=== PATIENT | female | born 1960 | race Caucasian/White ===

== ENCOUNTER → 2016-10-15 | Outpatient (CLI) | payer OTHER ==
[~2016-10-15] MED LIST: ACCOLATE20 MG PO; ADVAIR 500/501 DISK IH; ASCORBIC ACID500 M3 PO; BENTYL20 MG PO; CELEBREX200 MG PO; EVAMIST8.1 ML TD; EVAMIST8.1 ML TP; Ecotrin PO; FERROUS SULFAT325 M2 PO; FLAGYL500 MG PO; Feosol PO; GEMFIBROZIL600 MG PO; OMEPRAZOLE20 M3 PO; PERCOCET 2.51 TABLET PO; PRILOSEC OTC20 MG PO; ROBITUSSIN AC,T10 ML PO; SENOKOT S,PE1 TABLET PO; SENOKOT,SENN1 TABLE1 PO; SENOKOT,SENN1 TABLET PO; TYLENOL EXTRA500 MG PO; TYLENOL REGULA325 MG PO; VENTOLIN HFA18 GM IH; Vicodin,Norco 5/325 PO; ZOFRAN ODT4 MG PO; ZYRTEC10 M3 PO
== END | disposition home or self-care (01) ==
LOC: RAD 11:00
DX: R93.5 Abnormal findings on diagnostic imaging of other abdominal regions, including retroperitoneum (principal)
CPT/HCPCS: 74177

== ENCOUNTER 2016-10-16 16:11 | Emergency (ER) | payer OTHER ==
[~2016-10-16] VITALS: Ht 165.1 cm; Wt 88.7 kg
[~2016-10-16 16:11] MED LIST changes: -BENTYL20 MG PO; -FLAGYL500 MG PO; -ZOFRAN ODT4 MG PO
[2016-10-16 17:00] LABS: HEMATOCRIT 38.5 % (36.0-46.0); MCH 29.3 PG (29.0-34.0); MCV 86.1 FL (83-99); MEAN PLAT.VOLUME 8.3 uM^3 (9.5-12.4); PLATELET COUNT 359 K/uL (156-360); RBC DIS.WIDTH-CV 11.9 % (11.8-14.6); RBC DIS.WIDTH-SD 38.2 % (39-53); RED BLOOD COUNT 4.47 M/uL (3.80-5.20); WHITE BLOOD COUNT 9.1 K/uL (4.1-10.2)
[2016-10-16 17:12] LABS: CHLORIDE 105 mEq/L (99-109); POTASSIUM 3.7 mEq/L (3.7-5.4); SODIUM 141 mEq/L (136-147)
[2016-10-16 17:12] LABS: ADD MIUA? YES; BILIRUBIN NEGATIVE; BLOOD SMALL; COLOR STRAW ((YELLOW)); GLUCOSE (STRIP) NEGATIVE; KETONES NEGATIVE; LEUKOCYTES NEGATIVE; NITRITE NEGATIVE; PROTEIN (STRIP) NEGATIVE; SPECIFIC GRAVITY 1.004 (1.000-1.030); UROBILINOGEN 0.2 MG/DL (0.2-1.0)
[2016-10-16 17:14] LABS: GLUCOSE 95 mg/dL (70-99)
[2016-10-16 17:15] LABS: ANION GAP 8 MEQ/L (2-14)
[2016-10-16 17:16] LABS: TOTAL BILIRUBIN 0.5 mg/dL (0.0-1.0)
[2016-10-16 17:17] LABS: ALKALINE PHOSPHATASE 96 IU/L (3-129)
[2016-10-16 17:18] LABS: GFR ESTIMATE (CALCULATED) > 59 mL/min/
[2016-10-16 17:19] LABS: UREA NITROGEN (BUN) 7 mg/dL (9-23)
[2016-10-16 17:25] LABS: BACTERIA RARE /HPF; EPITHELIAL CELLS RARE /HPF; MUCUS TRACE /LPF; RED BLOOD CELLS 0-5 /HPF (0-5); UCUL ADDED? NO; WHITE BLOOD CELLS 0-5 /HPF (0-5)
[2016-10-16 17:40] LABS: LIPASE 26 U/L (1.0-51.0)
[2016-10-16 17:44] LABS: EOSINOPHIL (%) 4.8 % (0-5); EOSINOPHIL COUNT 0.5 K/uL (0-0.3); IMMATURE GRANULOCYTE (%) 0.3 % (0.0-0.7); INSTRUMENT ABS NEUTROPHIL CT 5.7 K/uL; LYMPHOCYTE COUNT 2.6 K/uL (1.0-2.8); MONOCYTE (%) 6.1 % (3-12); MONOCYTE COUNT 0.6 K/uL (0-0.8); NEUTROPHIL (%) 60.9 % (45-76); NEUTROPHIL COUNT 5.7 K/uL (1.8-6.4)
[2016-10-16] MEDS ORDERED: BENTYL20 MG PO (19:03)
[2016-10-16] MEDS ORDERED: FLAGYL500 MG PO (19:03)
[2016-10-16] MEDS ORDERED: ZOFRAN ODT4 MG PO (19:05)
[2016-10-16 20:08] VITALS: BP 138/90
[2016-10-17 15:49] LABS: POC NON-PRINT COM 1 ND
== END 2016-10-16 20:09 | disposition home or self-care (01) ==
LOC: EME 16:11 → RME 16:11
PROVIDERS: Physician Assistant
DX: K52.9 Noninfective gastroenteritis and colitis, unspecified (principal); Z90.710 Acquired absence of both cervix and uterus; R30.0 Dysuria; J45.909 Unspecified asthma, uncomplicated; F17.200 Nicotine dependence, unspecified, uncomplicated
CPT/HCPCS: 80053; 81003; 82272; 83690; 85025; 85027; 87493; 99281; 99285; J0500; J1885; J2405; J3010; J7030; S0030

== ENCOUNTER → 2017-07-09 | Outpatient (CLI) | payer OTHER ==
[~2017-07-09] MED LIST changes: +BENTYL20 MG PO; +FLAGYL500 MG PO; +ZOFRAN ODT4 MG PO
== END | disposition home or self-care (01) ==
LOC: RES 07:46
DX: J98.4 Other disorders of lung (principal); R94.2 Abnormal results of pulmonary function studies
CPT/HCPCS: 94060; 94726; 94729